=== PATIENT | male | born 1990 | race Caucasian/White ===

== ENCOUNTER 2016-10-23 20:48 | Emergency (ER) | payer MEDICAID, OTHER ==
[~2016-10-23] VITALS: Ht 177.8 cm; Wt 61.0 kg
[~2016-10-23 20:48] MED LIST: AMOX500T PO; ERYT1O RIGHT EYE
[2016-10-23 20:49] VITALS: BP 131/77; PULSE 120; RESP 20; TEMP 98; O2SAT 98
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
[2016-10-23] MEDS ORDERED: SODIUM CHLORIDE 0.9% FLUSH 5 ML FLUSH IVF PRN (21:45)
[2016-10-23 21:54] VITALS: PULSE 98
[2016-10-23 22:14] LABS: BICARBONATE 25.4 MEQ/L (21.0-32.0); MAGNESIUM 1.6 MG/DL (1.5-2.5)
[2016-10-23 22:46] VITALS: BP 149/86
--- NOTE | 2016-10-24 12:33 | EKG ---
Date Performed: 10/23/2016 Time Performed: 21:53:29 PTAGE: 26 years EKG: SINUS TACHYCARDIA BORDERLINE RIGHT AXIS DEVIATION POSSIBLE RIGHT VENTRICULAR CONDUCTION DEL AY NONSPECIFIC T-WAVE ABNORMALITY Since previous tracing, no significant change noted ABNORMAL RHYTHM ECG PREVIOUS TRACING : 04/19/2007 18.32 DOCTOR: Elizabeth Lim Interpretating Date/Time 10/24/2016 12:33:17
== END 2016-10-23 22:53 | disposition home or self-care (01) ==
LOC: NEPE 20:48
DX: F45.8 Other somatoform disorders (principal); R00.0 Tachycardia, unspecified
CPT/HCPCS: 80048; 83735; 93005

== ENCOUNTER 2017-11-28 09:00 | Emergency (ER) | payer MEDICAID ==
[~2017-11-28] VITALS: Ht 177.8 cm; Wt 61.5 kg
[2017-11-28 09:06] VITALS: BP 123/80; PULSE 95; RESP 16; TEMP 97.7; O2SAT 98
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
[2017-11-28] MEDS ORDERED: IBUP1TAB7 PO (10:17)
[2017-11-28] MEDS ORDERED: ROBA750T PO (10:17)
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
== END 2017-11-28 10:39 | disposition home or self-care (01) ==
LOC: NEPK 09:00
DX: S39.012A Strain of muscle, fascia and tendon of lower back, initial encounter (principal); V86.99XA Unspecified occupant of other special all-terrain or other off-road motor vehicle injured in nontraffic accident, initial encounter; F17.200 Nicotine dependence, unspecified, uncomplicated; F12.90 Cannabis use, unspecified, uncomplicated
CPT/HCPCS: 72072; 72110; 99283